=== PATIENT | male | born 1945 | race African-American/Black ===

== ENCOUNTER → 2017-04-23 | Outpatient (CLI) | payer OTHER | END | disposition home or self-care (01) | LOC: MRI 04-09 14:30 → RAD 04-09 14:30 → MRI 13:41 → RAD 04-24 14:30 | DX: S83.281A Other tear of lateral meniscus, current injury, right knee, initial encounter (principal); M94.8X6 Other specified disorders of cartilage, lower leg; M17.11 Unilateral primary osteoarthritis, right knee | CPT/HCPCS: 73721 ==

== ENCOUNTER 2017-11-30 14:13 | Observation (INO) | payer OTHER ==
[~2017-11-30] VITALS: Ht 180.3 cm; Wt 102.1 kg
[2017-11-30 14:54] LABS: BASOPHIL (%) 0.4 % (0-1); EOSINOPHIL (%) 1.9 % (0-5); EOSINOPHIL COUNT 0.1 K/uL (0-0.3); HEMATOCRIT 42.2 % (38.0-50.0); HEMOGLOBIN 14.5 G/DL (12.5-16.6); IMMATURE GRANULOCYTE (%) 0.3 % (0.0-0.7); LYMPHOCYTE (%) 40.5 % (15-42); MCH 31.4 PG (29.0-34.0); MCHC 34.4 G/DL (30.0-36.0); MCV 91.3 FL (86-99); MONOCYTE (%) 9.9 % (3-12); MONOCYTE COUNT 0.7 K/uL (0-0.8); NEUTROPHIL COUNT 3.5 K/uL (1.8-6.4); PLATELET COUNT 221 K/uL (156-360); RBC DIS.WIDTH-CV 14.1 % (11.8-14.6); RBC DIS.WIDTH-SD 47.2 % (39-53); RED BLOOD COUNT 4.62 M/uL (4.00-5.50); WHITE BLOOD COUNT 7.4 K/uL (4.1-10.2)
[2017-11-30 15:03] LABS: PTT 28.4 SEC (25-37)
[2017-11-30 15:05] LABS: CHLORIDE 107 mEq/L (99-109); POTASSIUM 3.8 mEq/L (3.7-5.4); SODIUM 138 mEq/L (136-147)
[2017-11-30 15:06] LABS: MAGNESIUM 2.4 mg/dL (1.3-2.7)
[2017-11-30 15:07] LABS: GLUCOSE 85 mg/dL (70-99)
[2017-11-30 15:11] LABS: CREATININE 1.2 mg/dL (0.6-1.3); GFR ESTIMATE (CALCULATED) > 59 mL/min/ (58.99-99999)
[2017-11-30 15:12] LABS: UREA NITROGEN (BUN) 13 mg/dL (9-23)
[2017-11-30 15:15] LABS: TROP-I INTERPRETATION NEGATIVE; TROPONIN-I 0.01 ng/mL (0.0-0.30)
[2017-11-30] MEDS ORDERED: UROXATRAL10 MG PO (16:18)
[2017-11-30] MEDS ORDERED: MSM500 MG PO (16:19)
[2017-11-30] MEDS ORDERED: NORVASC5 MG PO (16:19)
[2017-11-30] MEDS ORDERED: POTASSIUM-9999 MG PO (16:19)
[2017-11-30] MEDS ORDERED: VITAMIN D31000 UNI2 PO (16:19)
[2017-11-30] MEDS ORDERED: DIOVAN HCT 31 TABLE1 PO (16:19)
[2017-11-30] MEDS ORDERED: PRESERVISION T1 EACH PO (16:20)
[2017-11-30] MEDS ORDERED: B-COMPLEX-VITA1 EACH PO (16:20)
[2017-11-30] MEDS ORDERED: MAGNESIUM400 M1 PO (16:20)
[2017-11-30] MEDS ORDERED: VITAMIN C500 M1 PO (16:20)
[2017-11-30 17:08] VITALS: BP 154/93
[2017-11-30 19:45] VITALS: BP 153/70
[2017-11-30 23:33] VITALS: BP 136/75
[2017-12-01 03:44] VITALS: BP 138/62
[2017-12-01 06:32] LABS: TROP-I INTERPRETATION NEGATIVE; TROPONIN-I < 0.01 ng/mL (0.0-0.30)
[2017-12-01 06:33] LABS: CHLORIDE 105 MEQ/L (99-109); CREATININE 1.2 MG/DL (0.6-1.3); GFR ESTIMATE (CALCULATED) > 59 mL/min/ (58.99-99999); SODIUM 137 MEQ/L (136-147); UREA NITROGEN (BUN) 19 mg/dL (9-23)
[2017-12-01 06:35] LABS: GLUCOSE 131 mg/dL (70-99)
[2017-12-01 09:30] VITALS: BP 162/72
[2017-12-01 11:29] VITALS: BP 151/64
[2017-12-01] MEDS ORDERED: ASPIR 8181 M1 PO (11:46)
== END 2017-12-01 13:41 | disposition home or self-care (01) ==
LOC: EME 14:13 → EDOF 15:44 → ENRESERV 15:45 → CANRESERV 15:45 → EDOF 15:48 → ENRESERV 16:21 → 5WEST 16:54
PROVIDERS: Emergency Medicine; Internal Medicine
DX: R07.89 Other chest pain (principal); I10 Essential (primary) hypertension; E78.5 Hyperlipidemia, unspecified; N40.0 Benign prostatic hyperplasia without lower urinary tract symptoms; Z87.891 Personal history of nicotine dependence; I44.1 Atrioventricular block, second degree; E11.9 Type 2 diabetes mellitus without complications; K21.9 Gastro-esophageal reflux disease without esophagitis; Z82.49 Family history of ischemic heart disease and other diseases of the circulatory system; Z82.3 Family history of stroke
CPT/HCPCS: 71045; 80048; 83735; 84484; 85025; 85610; 85730; 93005; 99281; 99285; G0378; J1650

== ENCOUNTER → 2018-01-22 | Outpatient (CLI) | payer OTHER ==
[~2018-01-22] MED LIST: ASPIR 8181 M1 PO; B-COMPLEX-VITA1 EACH PO; DIOVAN HCT 31 TABLE1 PO; MAGNESIUM400 M1 PO; MSM500 MG PO; NORVASC5 MG PO; POTASSIUM-9999 MG PO; PRESERVISION T1 EACH PO; UROXATRAL10 MG PO; VITAMIN C500 M1 PO; VITAMIN D31000 UNI2 PO
== END | disposition home or self-care (01) ==
LOC: NUC 10:00
DX: M17.0 Bilateral primary osteoarthritis of knee (principal); M19.072 Primary osteoarthritis, left ankle and foot; M19.071 Primary osteoarthritis, right ankle and foot; M47.895 Other spondylosis, thoracolumbar region; Z87.81 Personal history of (healed) traumatic fracture
CPT/HCPCS: 78306; A9503

== ENCOUNTER → 2018-01-24 | Outpatient (CLI) | payer OTHER | END | disposition home or self-care (01) | LOC: RAD 09:54 | DX: R91.1 Solitary pulmonary nodule (principal); K76.9 Liver disease, unspecified; M47.896 Other spondylosis, lumbar region; M89.8X8 Other specified disorders of bone, other site | CPT/HCPCS: 74177 ==